=== PATIENT | male | born 1980 | race Caucasian/White ===

== ENCOUNTER 2020-01-16 15:27 | Emergency (ER) | payer MEDICAID ==
[~2020-01-16 15:27] MED LIST: NITROGLYCERIN 0.4 MG/TAB 25 TAB/BOTTLE ONE; TENECTEPLASE INJ 50 MG KIT IV ONE
[2020-01-16] MEDS: NITROGLYCERIN 0.4 MG/TAB 25 TAB/BOTTLE SL PRN ×2 (15:53→15:59)
[2020-01-16] MEDS ORDERED: MORPHINE SULFATE 10 MG/ML INJ IV ONE (15:59)
[2020-01-16] MEDS ORDERED: TENECTEPLASE INJ 50 MG KIT IV ONE (15:59)
[2020-01-16] MEDS ORDERED: ASPIRIN 81 MG TABLET, CHEWABLE PO ONE (15:59)
[2020-01-16] MEDS ORDERED: HEPARIN SOD (PORCINE) 1,000 UNIT/ML 10 ML VIAL ONE (16:07)
[2020-01-16] MEDS ORDERED: HEPARIN SODIUM,PORCINE/D5W 25,000 UNIT/250 ML RTUINJ IV ONE (16:07)
--- NOTE | 2020-01-16 16:16 | ER Document Report ---
ED General - General Chief Complaint: Shortness Of Breath Stated Complaint: SHORT OF BREATH,VOMITING Time Seen by Provider: 01/16/20 15:56 Mode of Arrival: Ambulatory Information source: Patient Notes: 39-year-old man presents to the emergency department with a acute onset of chest pain EKG which was performed in the triage area reveals acute ST elevation inferior ND. Patient rates his pain 7/10 it is nonradiating. He had one episode of emesis at home. His father had early coronary artery disease and had ND at age 38. Onset of chest pain approximately 2 hours prior to arrival. He denies being a smoker, has not had a primary physician. TRAVEL OUTSIDE OF THE [place] IN LAST 30 DAYS: No - Related Data Allergies/Adverse Reactions: Penicillins Allergy (Verified 03/10/15 06:58) Past Medical History - Social History Smoking Status: Never Smoker Family History: Reviewed & Not Pertinent Past Surgical History: Reports: Hx Appendectomy - Immunizations Hx Diphtheria, Pertussis, Tetanus Vaccination: Yes Review of Systems - Review of Systems Notes: Constitutional: Negative for fever. HENT: Negative for sore throat. Eyes: Negative for visual changes. Cardiovascular: + Chest pain. Respiratory: + Shortness of breath. Gastrointestinal: + Nausea Genitourinary: Negative for dysuria. Musculoskeletal: Negative for back pain. Skin: Negative for rash. Neurological: Negative for headaches, weakness or numbness. 10 point ROS negative except as marked above and in HPI. Physical Exam - Vital signs Vitals: Temp Pulse Resp BP Pulse Ox 97.8 F 115 H 24 H 160/65 H 100 01/16/20 15:37 01/16/20 15:37 01/16/20 15:37 01/16/20 15:37 01/16/20 15:37 - Notes Notes: PHYSICAL EXAMINATION: Physical Exam: General: Well-nourished well-developed 39-year-old male in moderate distress secondary to chest pain HEENT: NC/AT, pupils equal round and reactive to light, MM moist,nares clear, oropharynx clear, airway patent Neck: supple, no adenopathy, no masses. Good range of motion Lungs: clear, no wheezing, no rales no rhonchi CVS: Regular rate and rhythm no murmur gallop or rub Abdomen: Soft, active, nontender, no masses, no hepatosplenomegaly Ext: No edema, clubbing or cyanosis. Neuro: Alert and responsive, moving all 4 extremities on command, cranial nerves intact, no focal findings Skin: Intact no open lesions, no rash Course - Re-evaluation Re-evalutation: 01/16/20 16:[address] elevation ND, cardiac connection at [facility] was contacted. Because of concerns regarding coronavirus was suggested the patient get thrombolytics. TNKase is ordered, patient received TNKase, heparin bolus and heparin drip. Sublingual nitroglycerin and aspirin are given patient has an improvement in his chest pain but currently has a complaint of dizziness. 01/16/20 16:19 patient has received aspirin, sublingual nitroglycerin, TNKase, chest pain improved, heparin bolus and heparin drip ordered. Dr. Sweeney college service officer at the [facility] will except the patient in transfer. - Vital Signs Vital signs: Temp Pulse Resp BP Pulse Ox 97.8 F 115 H 17 156/92 H 100 01/16/20 15:37 01/16/20 15:37 01/16/20 16:31 01/16/20 16:31 01/16/20 16:31 - Laboratory Result Diagrams: 01/16/20 15:54 01/16/20 15:54 Laboratory results interpreted by me: 01/16/20 01/16/20 01/16/20 15:54 15:54 15:54 RBC 5.64 H Hgb 17.2 H APTT 21.3 L Sodium 136.8 L Carbon Dioxide 21 L Glucose 332 H Calcium 10.8 H ALT 83 H - Diagnostic Test Radiology reviewed: Image reviewed, Reports reviewed Radiology results interpreted by me: 01/16/20 16:27 Chest x-ray no acute cardiopulmonary findings. No CHF and normal cardiac silhouette. - EKG Interpretation by Nc EKG shows normal: Sinus rhythm, [place] - Normal, Intervals - Normal, ST-T Waves - ST elevation in II, III, aVF Rate: Normal - 77 Rhythm: NSR [place]/QRS: IVCD Additional EKG results interpreted by me: 01/16/20 16:[address] elevation ND Critical Care Note - Critical Care Note Total time excluding time spent on procedures (mins): 45 - Critical care time spent obtaining history from patient or surrogate, discussions with consultants, development of treatment plan with patient or surrogate, evaluation of patient's response to treatment, examination of patient, ordering and performing alin tments and interventions, ordering and review of laboratory studies, re- evaluation of patient's condition, ordering and review of radiographic studies and review of old charts Discharge - Discharge Clinical Impression: Acute ST elevation myocardial infarction (STEMI) of inferior wall Chest pain Qualifiers: Chest pain type: unspecified Qualified Code(s): R07.9 - Chest pain, unspecified Condition: Fair Disposition: [facility]
[2020-01-16 16:20] LABS: ABSOLUTE BASOPHILS # (AUTO) 0.1 10^3/uL (0.0-0.2); ABSOLUTE EOSINOPHILS # (AUTO) 0.1 10^3/uL (0.0-0.6); ABSOLUTE LYMPHOCYTES (AUTO) 3.2 10^3/uL (0.5-4.7); ABSOLUTE NEUT (AUTO) 5.2 10^3/uL (1.7-8.2); BASOPHILS % (AUTO) 0.7 % (0-2); EOSINOPHILS % (AUTO) 1.5 % (0-6); HEMATOCRIT 49.9 % (37.9-51.0); HEMOGLOBIN 17.2 g/dL (13.5-17.0); LYMPHOCYTES % (AUTO) 32.8 % (13-45); MEAN CORPUSCULAR HEMOGLOBIN 30.5 pg (27.0-33.4); MEAN CORPUSCULAR HGB CONC 34.5 g/dL (32.0-36.0); MEAN CORPUSCULAR VOLUME 89 fl (80-97); MONOCYTES % (AUTO) 10.6 % (3-13); PLATELET COUNT 226 10^3/uL (150-450); RED BLOOD COUNT 5.64 10^6/uL (4.35-5.55); RED CELL DISTRIBUTION WIDTH 13.4 % (11.5-14.0); SEGMENTED NEUTROPHILS % (AUTO) 54.4 % (42-78); TOTAL CELLS COUNTED % (AUTO) 100 %; WHITE BLOOD COUNT 9.6 10^3/uL (4.0-10.5)
--- NOTE | 2020-01-16 16:30 | RADIOLOGY REPORT (SQ) ---
EXAM DESCRIPTION: CHEST SINGLE VIEW IMAGES COMPLETED DATE/TIME: 01/16/2020 4:22 pm REASON FOR STUDY: chest pain COMPARISON: None. EXAM PARAMETERS: NUMBER OF VIEWS: One view. TECHNIQUE: An AP view of the chest was obtained. RADIATION DOSE: NA LIMITATIONS: None. FINDINGS: LUNGS AND PLEURA: No consolidation, pleural effusion or pneumothorax. MEDIASTINUM AND HILAR STRUCTURES: No mediastinal or hilar contour abnormality. HEART AND VASCULAR STRUCTURES: The cardiac silhouette and pulmonary vasculature are within normal crowe its. BONES: No acute findings. HARDWARE: None in the chest. OTHER: No other finding. IMPRESSION: No acute cardiopulmonary process. TECHNICAL DOCUMENTATION: JOB ID: [id number] [employer]- All Rights Reserved Reading location - IP/workstation name: [email or web address]
[2020-01-16 16:33] LABS: INTERNATIONAL RATION (INR) 0.92; PROTHROMBIN TIME 12.4 SEC (11.4-15.4)
[2020-01-16 16:34] LABS: PARTIAL THROMBOPLASTIN TIME 21.3 SEC (23.5-35.8)
[2020-01-16 16:41] LABS: ALBUMIN 4.9 g/dL (3.5-5.0); ALKALINE PHOSPHATASE 77 U/L (38-126); ANION GAP 13 (5-19); ASPARTATE AMINO TRANSFERASE 43 U/L (17-59); BILIRUBIN,DIRECT 0.1 mg/dL (0.0-0.4); BILIRUBIN,TOTAL 0.7 mg/dL (0.2-1.3); BLOOD UREA NITROGEN 15 mg/dL (7-20); CALCIUM 10.8 mg/dL (8.4-10.2); CARBON DIOXIDE 21 mmol/L (22-30); CHLORIDE 103 mmol/L (98-107); CREATINE KINASE 73 U/L (55-170); GLUCOSE 332 mg/dL (75-110); POTASSIUM 4.6 mmol/L (3.6-5.0); TOTAL PROTEIN 7.9 g/dL (6.3-8.2)
[2020-01-16 16:47] VITALS: BP 156/92
[2020-01-16 16:52] LABS: CREATINE KINASE MB 1.3 ng/mL (<4.55)
[2020-01-16 16:59] LABS: TROPONIN I 0.034 ng/mL
[2020-01-16] MEDS ORDERED: CLOPIDOGREL BISULFATE 300 MG TABLET PO ONE (17:05)
[2020-01-16] MEDS ORDERED: HEPARIN SODIUM,PORCINE/D5W 25,000 UNIT/250 ML RTUINJ IV PRN (17:07)
--- NOTE | 2020-01-16 18:21 | EKG REPORT ---
SEVERITY:- ABNORMAL ECG - SINUS RHYTHM NONSPECIFIC INTRAVENTRICULAR CONDUCTION DELAY INFERIOR INJURY, PROBABLE EARLY ACUTE INFARCT CONSIDER POSTERIOR WALL INVOLVEMENT : Confirmed by: Yoan Kauffman MD 16-Jan-2020 18:20:47
[2020-01-16] MEDS ORDERED: HEPARIN SOD (PORCINE) 1,000 UNIT/ML 10 ML VIAL IV PRN (19:03)
--- NOTE | 2020-01-19 10:38 | EKG REPORT ---
SEVERITY:- ABNORMAL ECG - SINUS RHYTHM NONSPECIFIC INTRAVENTRICULAR CONDUCTION DELAY INFERIOR INJURY, PROBABLE EARLY ACUTE INFARCT CONSIDER POSTERIOR WALL INVOLVEMENT LATERAL LEADS ARE ALSO INVOLVED : Confirmed on behalf of: Yoan Kauffman MD 19-Jan-2020 10:37:57
== END 2020-01-16 16:25 | disposition short-term general hospital (02) ==
LOC: ER 15:27
DX: I21.19 ST elevation (STEMI) myocardial infarction involving other coronary artery of inferior wall (principal); R07.9 Chest pain, unspecified; R06.02 Shortness of breath; R11.10 Vomiting, unspecified; Z20.828 Contact with and (suspected) exposure to other viral communicable diseases; Z88.0 Allergy status to penicillin
CPT/HCPCS: 93005 ×2; 99291; 96372; 96374; 36415; 82553; 82550; 85025; 85610; 85730; 87635; 80053; 84484; 71045; 93010 ×2; J3101; J3490 ×2; J1644; C9803